=== PATIENT | female | born 2000 | race Caucasian/White ===

== ENCOUNTER 2024-06-04 15:13 | Emergency (ER) | payer OTHER, SELFPAY ==
--- NOTE | 2024-06-04 15:18 | ED_ITS ---
HPI HPI - General Adult General Chief complaint: Overdose Stated complaint: overdose Time Seen by Provider: 06/04/24 15:17 History of Present Illness HPI narrative: This patient arrived to the hospital registration area by [employer] amb[employer]lette driver. She apparently stopped breathing while he was driving her. No other history available. A jordan echeverria had been called and responded to the registration area. A number responders went to the curbside and got her out of the car. She was not breathing and was not responsive. She was given Narcan nasally immediately and within a minute she started waking up. She was put into the trauma bay IVs were and she was monitored. She is now able to provide more history. She says she is from the [facility] but was not exactly sure why she was in [place] except to get counseling. The [employer] ambulette driver said that she may had used heroin the patient apparently was being brought to the area to [facility] Related Data Allergies Allergy/AdvReac Type Severity Reaction Status Date / Time PENICLLIN Allergy Severe Hives Uncoded 06/04/24 15:21 Opioid HPI Opioid Management Most Recent Opioid Data: No Data to Display Exam Narrative Exam Narrative: I responded to the bedside vehicle. She was totally unresponsive and had to be removed from the vehicle and placed on a gurney. She was immediately brought back to the trauma bay and administered nasal Narcan. Prior to that she was somewhat cyanotic with no spontaneous respirations. She did have a good pulse. Within 1 minute of getting the nasal Narcan she started waking up. 2 IVs had been started and they were in the process of giving her intravenous Narcan when she woke up so only one half dose was given. She was then observed for the next hour and 15 minutes. She denied any knowledge of using any type of narcotics, states that she was using some benzodiazepines today. She is fully cooperative and pleasant. No evidence of confusion. She remained in a sinus rhythm throughout here and her pulse oximetry stayed normal. Screening lab will be done. She had no change in her cognitive function. The [facility] rehab facility said they will come and get her enrolled in their program immediately upon discharge from the hospital emergency room. HEENT showed no evidence of trauma or injury. She did not show any evidence of a seizure. Her lungs are clear heart sounds are regular. No evidence of trauma to the extremities. Perfusion to the limbs was normal as well. No active abscess cellulitis or phlebitis is noted on her extremities. Medical Decision Making MDM Narrative Medical decision making narrative: Patient responded to intravenous Narcan after becoming apneic and cyanotic. This is strongly suggestive of narcotic overdose. She denies any known use of narcotics today. She seemed to have recovered and is stable for discharge at this time. Discharge Plan Discharge Chief Complaint: Overdose Clinical Impression: Drug overdose, Acute drug overdose Patient Disposition: Home, Self-Care Time of Disposition Decision: 16:32 Print Language: Azeri Additional Instructions: Proceed to your rehab center
--- NOTE | 2024-06-04 15:19 | ECG_ITS ---
[facility] Test Date: 2024-06-04 Pat Name: LAWRENCE MONTALVO Department: Room: - Gender: Female Tool Maker: : 2000 Requested By: Order Number: [id number] Reading MD: TERESA CHANG Measurements Intervals [place] Rate: 93 P: 55 [place]: 148 QRS: 63 QRSD: 90 T: 31 QT: 364 QTc: 414 Interpretive Statements 1100 Sinus rhythm 9110 normal ECG No previous ECG available for comparison Electronically Signed On 06-04-2024 22:57:32 EDT by TERESA CHANG
[2024-06-04] MEDS: NALOXONE HCL 2 MG/2 ML SYRINGE NS (15:25)
--- NOTE | 2024-06-04 15:25 | PC.NURSE ---
Pt arrived and code jacki called to ER entrance for unresponsive. Pt was unconscious and not breathing at time of arrival. Pt was in back seat and multiple staff needed to get patient out of car into chair to be brought into the ER. Pt was placed in bed and nasal Narcan given at 1510. Two IV sites one in each AC were started and IV Narcan given at 1513 in left AC IV. Pt woke up seconds after this. Pt states she fell asleep and that her only medical history is abdominal pain and that she at times takes medications for this that causes memory issues. Pt states she was on her way to rehab for mental health issues. UBER driver/refuse collector states he was taking her to rehab and that she possibly used Heroin in route at the gas station. -20 GA in left and right AC -Narcan nasal 1510 -Narcan IV 1513 -BP 123/86 -O2% 97% -Pulse 94
[2024-06-04] MEDS: NALOXONE HCL 0.4 MG/ML VIAL IV (15:26)
[2024-06-04 15:30] LABS: Basophils Percent Auto 0.8 % (0.2-2.0); Eosinophils Percent Auto 0.8 % (0.9-7.0); Hematocrit 34.5 % (36.0-48.0); Hemoglobin 11.8 g/dL (12.0-16.0); Immature Granulocytes Abs Auto 0.01 10^3/uL (0.00-0.03); Immature Granulocytes Pct Auto 0.2 % (0.0-0.5); Lymphocytes Absolute Auto 1.7 10^3/uL (1.2-3.8); Lymphocytes Percent Auto 36.3 % (20.5-60.0); Mean Corpuscular HGB Conc 34.2 g/dL (29.9-35.2); Mean Corpuscular Hemoglobin 32.6 pg (26.7-34.0); Mean Corpuscular Volume 95.3 fL (81.0-99.0); Mean Platelet Volume 10.1 fL (9.5-13.5); Monocytes Absolute Auto 0.4 10^3/uL (0.3-0.8); Monocytes Percent Auto 9.2 % (1.7-12.0); Neutrophils Absolute Auto 2.5 10^3/uL (1.4-6.5); Neutrophils Percent Auto 52.7 % (43.0-75.0); Platelet Count 261 10^3/uL (150-450); Red Blood Count 3.62 10^6/uL (4.20-5.40); Red Cell Distribution Width 13.2 % (11.0-15.0); White Blood Count 4.8 10^3/uL (4.0-11.0)
[2024-06-04] MEDS: 0.9 % SODIUM CHLORIDE 1,000 ML 1000 ML IV (15:44)
[2024-06-04 16:07] LABS: Alanine Aminotransferase 18 U/L (14-59); Albumin Globulin Ratio 1.2; Albumin Level 3.8 g/dL (3.4-5.0); Alkaline Phosphatase 53 U/L (46-116); Anion Gap 11.3; Aspartate Amino Transferase 17 U/L (15-37); Bilirubin Total 0.2 mg/dL (0.2-1.0); Carbon Dioxide 29.4 mmol/L (21.0-32.0); Chloride 102 mmol/L (98-107); Estimated GFR (African America >60 (>=60); Estimated GFR (Non-African Ame >60 (>=60); Globulin 3.3 g/dL; Glucose 78 mg/dL (74-106); Potassium 3.7 mmol/L (3.5-5.1); Sodium 139 mmol/L (136-145); Total Protein 7.1 g/dL (6.4-8.2)
== END 2024-06-04 17:33 | disposition home or self-care (01) ==
PROVIDERS: Emergency Provider Emergency Medicine Emergency Medical Services
DX: T50.901A Poisoning by unspecified drugs, medicaments and biological substances, accidental (unintentional), initial encounter (principal); R40.4 Transient alteration of awareness
CPT/HCPCS: 36415; 80053; 85025; 93005; 96374; 99284; J1230